=== PATIENT | male | born 1985 | race Caucasian/White ===

== ENCOUNTER → 2017-11-07 09:57 | Outpatient (CLI) | payer BC, SELFPAY ==
--- NOTE | 2017-11-07 12:00 | CT_ITS ---
CT abdomen pelvis w con CLINICAL INDICATION: Left lower quadrant pain and swelling ITS.REASON: TESTICULAR PAIN AND SWELLING, LLQ PAIN ORDERING PHYSICIAN: Kaveh Thomas MD PATIENT AGE: 32 years COMPARISON: None TECHNIQUE: Axial images obtained with sagittal and coronal reformats. PROCEDURE: Oral Contrast: Redicat IV Contrast: 75 mL [id number]. FINDINGS: The lung bases are clear. Liver, spleen, adrenal glands, and pancreas are unremarkable. Gallstones are present. There are nonobstructing bilateral renal calculi measuring up to 4 mm in the mid polar region on the right and 3 mm in the mid to lower pole on the left. No ureteral calculi evident. Unremarkable appendix. No intestinal obstruction or free air. No pelvic mass abnormal fluid collection or focal inflammatory change. No evidence of inguinal adenopathy. No abdominal wall hernia IMPRESSION: 1. Cholelithiasis. 2. Nonobstructing bilateral renal calculi.
--- NOTE | 2017-11-07 14:20 | US_ITS ---
US scrotum HISTORY: ITS.REASON: TESTICULAR PAIN AND SWELLING ORDERING PHYSICIAN: Kaveh Thomas MD PATIENT AGE: 32 years COMPARISON: None FINDINGS: RIGHT TESTICLE: The right testicle has an unremarkable appearance measuring 5.2 x 3.3 x 3.3 cm. No testicular mass, hydrocele, spermatocele, or varicocele evident. Blood flow is noted to the right testicle. LEFT TESTICLE: Left epididymis contains 2 small cystic areas measuring up to 3 mm. The left testicle measures 4.5 x 3.5 x 3.2 cm and has an unremarkable appearance. Blood flow is present. There is a small left hydrocele. IMPRESSION: 1. Small left hydrocele 2. Small left epididymal cysts 3. No testicular mass. Bilateral testicular blood flow is present
== END ==
PROVIDERS: PCP Internal Medicine Adolescent Medicine; Visit Provider Internal Medicine Adolescent Medicine
DX: R10.32 Left lower quadrant pain (principal); N50.819 Testicular pain, unspecified; N50.89 Other specified disorders of the male genital organs
CPT/HCPCS: 74177; 76870; Q9967